=== PATIENT | female | born 1945 | race Caucasian/White ===

== ENCOUNTER → 2018-02-23 | Outpatient (CLI) | payer OTHER ==
[~2018-02-23] VITALS: Ht 152.4 cm; Wt 48.5 kg
[~2018-02-23] MED LIST: ALEVE220 M1 PO; ATORVASTATIN CA40 MG PO; CLONAZEPAM 0.50.5 M1 PO; COLACE100 MG PO; GLIMEPIRIDE1 MG PO; LIORESAL 10 MG10 MG PO; METHYLPREDNISOLO4 M1 PO; METOCLOPRAMIDE 55 M1 PO; NEURONTIN 300300 M1 PO; ROPINIROLE HCL3 MG PO; TRAMADOL 50 MG50 MG PO; VOLTAREN GEL 1100 G2 TOP
--- NOTE | ~2018-02-23 | HPC ---
[facility] [place] [address] PAIN MANAGEMENT CONSULTATION Name: DOROTHYLUCIEN Amada [facility] #[id number] Admission: 02/23/18 Attend Phys: Aaron Cornell MD Discharge: Date of : 45 Report #: [id number] THIS REPORT FOR: //name// CC: Maggie RAMOS Physician staff Aaron Cornell DATE OF SERVICE: 02/23/2018 CHIEF COMPLAINT: Chronic pain, low back and left buttock. HISTORY OF PRESENT ILLNESS: This is the first visit for the patient who presented to the Pain Clinic today with her . I should say the outset that she was lying on the cart with her pillow during my visit and each time that I examined her, she wanted to return to the recumbent position. Her reports that she spends most of her time in bed. She also is a very poor historian. Her was able to provide some details, but he also was unable to give a thorough history as I had hoped for. It is clear that she has chronic pain, has been going on for some time. The pain report on her questionnaire suggested a sharp stabbing lumbar spine pain to the left side that has been present since February of 2017. She had a spinal surgery. She was unable to give me the name of the surgeon who performed the surgery nor exactly what the surgery was. I unfortunately do not have records or MRI. Since that time or perhaps even prior to that time, she has been complaining of a 9/10 pain shooting, cramping and aching, periodic and transient. Her pain drawing shows pain that begins in the back and radiates down the posterior aspect of the left leg. This was suggested L5-S1 nerve root involvement. She complains of alternating constipation and diarrhea. She complains of inability to get up and stand or do much of anything. She spends most of her time in bed. MEDICATIONS: A bit uncertain but we gathered the following: Colace, naproxen sodium q. 8 hours, Lipitor 40 mg at bedtime, gabapentin 300 mg t.i.d., Ultram 50 mg q. 6 hours, Reglan 5 mg 4 times daily, methylprednisolone 4 mg tablets daily, clonazepam 0.5 b.i.d., glimepiride 1 mg daily, baclofen 10 mg t.i.d., and Voltaren gel. ALLERGIES: To CODEINE, HYDROCODONE and OXYCODONE. PAST MEDICAL HISTORY: Type [address] [address] PAIN MANAGEMENT CONSULTATION Name: LUCIEN DE LA CRUZ Room #: REG [facility]#: [id number] Admission: 02/23/18 Attend Phys: Aaron Cornell MD Discharge: Date of : 45 Report #: [id number] PAST SURGICAL HISTORY: Gamma knife surgery is listed, although no details, tonsillectomy, cholecystectomy and cyst removed from her left foot. Spinal surgery was not listed by the patient in her list of operations but apparently this occurred in 2017. SOCIAL HISTORY: Listed as retired. She denies use of tobacco or alcohol or illicit drugs. REVIEW OF SYSTEMS: Markedly positive. Over 80% of the multi-questionnaire was answered in the affirmative including symptoms and every system; constitutional; ear, nose and throat; cardiovascular; respiratory; gastrointestinal; genitourinary; musculoskeletal; psychiatric and endocrine. She complains of memory loss, nervousness, depression and insomnia. PAIN IMPACT SCORE: Impact of pain score is positive for a score of 49/70, suggesting significant impact in her ability to live normally with chronic pain. PHYSICAL EXAMINATION: GENERAL: Somewhat confused 72-year-old female, very pale. VITAL SIGNS: Blood pressure 125/77, heart rate 87, respirations 16 and BMI is 20.9. HEENT: Normal. She has heavy makeup around her eyes. NECK: Supple without painful movement. CHEST: Reveals normal breath sounds. No audible wheezing. CARDIAC: Rhythm was regular. No appreciable murmur. ABDOMEN: Soft and tender. Bowel sounds are present. MUSCULOSKELETAL: Reveals a scar across the upper lumbar lower thoracic region from previous spinal surgery. This is tender. There is tenderness with slight rotation of the lumbar spine. There is mild positive straight leg raising discomfort noted in the left leg. Deep tendon reflexes are 2+ knees and ankles and symmetrical. Sensation is intact. There is no swelling. Peripheral pulses are palpable. RADIOLOGICAL DATA: X-rays: None are available to review. Impression: Post-laminectomy syndrome. I need more records. I have asked her to obtain a copy of her MRI report. I would like to get reports of her surgeries as well. Able to retrieve later in the day. A copy of her 01/09/2018 thoracic spine MR, which reported a meningioma in the spine as the indication for x-ray. It demonstrated postoperative changes in the upper lumbar region, especially to the left without mass effect or abnormal enhancement. Significant degenerative changes throughout with an L1-L2 reactive marrow changes, vacuum disk phenomena and posterior ridging with a [id number] disk extrusion suspected to the right without cord deformity. There was diffuse thoracic spondylosis with anterior wedging of several mid thoracic vertebrae, which appeared chronic. No acute compression deformities, [address] [address] PAIN MANAGEMENT CONSULTATION Name: LUCIEN DE LA CRUZ Room #: REG [facility]#: [id number] Admission: 02/23/18 Attend Phys: Aaron Cornell MD Discharge: Date of : 45 Report #: [id number] mass lesions or intrinsic cord abnormalities were noted. IMPRESSION: 1. Lumbar pain with radiation in the L5 distribution. 2. Severe debility. 3. Confusion. 4. History of diabetes. 5. . RECOMMENDATIONS: Return to the pain clinic in 1 week. I will review records. We would consider an epidural injection, but I would not suggest a spinal cord stimulator for this patient at this time without further information. By: [id number] Aaron Cornell MD /nt
[2018-02-23 13:11] VITALS: BP 125/77
== END ==
LOC: PAIN 06:59
DX: M54.5 Low back pain (principal); G89.29 Other chronic pain; E11.9 Type 2 diabetes mellitus without complications; R53.81 Other malaise; R41.0 Disorientation, unspecified

== ENCOUNTER → 2018-04-23 | Outpatient (CLI) | payer OTHER ==
[~2018-04-23] VITALS: Ht 152.4 cm; Wt 53.0 kg
[~2018-04-23] MED LIST changes: +BIOTIN1 MG PO; +CITRATE OF MAG296 M1 PO; +CYCLOBENZAPRINE5 MG PO; +DURAGESIC1 EAC4 TRANSDERM; +DURAGESIC1 EACH TRANSDERM; +EX-LAX15 MG PO; +GAS-X125 MG PO; +LIPITOR 20 MG T20 M1 PO; +LOPERAMIDE 2 MG2 M1 PO; +METAMUCIL POWD174 GM PO; +MOVANTIK12.5 MG PO; +NEXIUM40 MG PO; +ONDANSETRON HCL4 M2 PO; +OSTEO BI-FLEX1 EAC1 PO; +PEPTO-BISM262 MG/15 PO; +SENNA8.6 MG PO; +TRAZODONE HCL50 MG PO; +TUMS PO; +VALIUM5 MG PO; +VITAMIN D1000 UNI1 PO; +XANAX 0.5 MG0.5 MG PO
--- NOTE | ~2018-04-23 | HPC ---
[facility] [address] [place] [address] PAIN MANAGEMENT CONSULTATION Name: LUCIEN DE LA CRUZ Room #: REG TEAGAN Ramye.#: [id number] Admission: 04/23/18 Attend Phys: Aaron Cornell MD Discharge: Date of : 45 Report #: [id number] THIS REPORT FOR: //name// CC: Maggie Rodriguez [facility] physician/PCP Jourdan Cornell DATE OF SERVICE: 04/24/2018 Followup visit for chronic pain. The patient returns to pain clinic today and she is by herself. She is here today with low back pain and it radiates in a pattern along her left flank and into the left upper thigh. She is more loquacious today, outgoing and speaks rapidly. Her thought process is a bit tangential. She is friendly and outgoing. When I first saw her, she was in a different place much more dramatic in her pain behaviors. She was a poor historian at that visit from a depressed perspective and today her affect while more upbeat is tangential in her approach to topics and subjects. She reports to us that her pain intensity is a 5, but can be higher. It is shooting, cramping, crushing and aching. It radiates exclusively through the left, radiates as far as the knee. MEDICATIONS: Reviewed and reconciled. She remains on a substantial amount of medication including centrally acting medications. I have given her a short trial of fentanyl 12 mcg, but she did not like it. I have asked her to destroy the additional patches. PQRS: Review today shows a pleasant, but loquacious and somewhat forgetful female. Blood pressure 108/79, heart rate is 82, respirations 14, BMI is 22.8. She has significant osteoarthritis involving the hands. She has a pain intensity of 5/10, which is in her left low back and left leg consistent with radiculopathy. She has fallen in the last 3 months and is considered a fall risk. She is on no blood thinners and is not treated for hypertension and is not currently on opioids. She denies use of tobacco or alcohol. Physical exam reveals tenderness across the lumbosacral segment, pain with forward flexion and extension. Slight scoliosis and rotational changes noted throughout the lumbar spine. Tenderness along the paravertebral region on the right with a positive straight leg raising following L4 distribution. IMPRESSION: 1. Chronic intractable low back pain with radiculopathy. [address] [address] PAIN MANAGEMENT CONSULTATION Name: DE LA CRUZLUCIEN C Room #: REG CLI [facility]#: [id number] Admission: 04/23/18 Attend Phys: Aaron Cornell MD Discharge: Date of : 45 Report #: [id number] 2. History of diabetes. 3. Post-laminectomy syndrome with resection of meningioma in the area of T12. RECOMMENDATIONS: We will try an epidural steroid injection under fluoroscopic guidance. I would like to avoid any additional medication for this woman. Importance of some exercise was discussed in some great detail as well today. PROCEDURE: Left transforaminal epidural injection under fluoroscopic guidance. She was taken to fluoroscopic suite, placed prone, skin prepped with ChloraPrep. Skin anesthetized over the L3-L4 neural foramen. Using triplanar fluoroscopic views, I advanced needle over the L4-L5 neural foramen. Using triplanar fluoroscopic views, I advanced needle into the neural foramen. On the first attempt, there was no blood or CSF aspirated. 1 mL of Omnipaque was injected with good spread of dye observed in the epidural space, was followed by 3 mL of 0.5% lidocaine mixed with 80 mg of triamcinolone. She tolerated the procedure well and was observed for 45 minutes and discharged. Pain was reduced to 1 or 2 at discharge. By: [id number] Aaron Cornell MD /nt
[2018-04-23 14:34] VITALS: BP 108/79
== END | disposition home or self-care (01) ==
LOC: PAIN 04-02 12:23
DX: M54.16 Radiculopathy, lumbar region (principal); G89.29 Other chronic pain; M96.1 Postlaminectomy syndrome, not elsewhere classified; Z88.6 Allergy status to analgesic agent; Z88.8 Allergy status to other drugs, medicaments and biological substances; Z79.899 Other long term (current) drug therapy; Z98.890 Other specified postprocedural states

== ENCOUNTER → 2018-06-15 | Outpatient (CLI) | payer OTHER ==
[~2018-06-15] VITALS: Ht 152.4 cm; Wt 51.4 kg
[~2018-06-15] MED LIST changes: +MIRALAX17 GM PO
--- NOTE | ~2018-06-15 | HPC ---
[facility] [place] [address] PAIN MANAGEMENT CONSULTATION Name: DOROTHYLUCIEN Amada Room #: REG TEAGAN Ramey.#: [id number] Admission: 06/15/18 Attend Phys: Aaron Cornell MD Discharge: Date of : 45 Report #: [id number] THIS REPORT FOR: //name// CC: JAMEY MENARD APRN [facility] physician/PCP Aaron Cornell DATE OF SERVICE: 06/15/2018 Followup visit for chronic low back pain with radiation to the left hip and leg. The patient returns to clinic today and reports that she had significant improvement following her first transforaminal epidural injection. She is no longer utilizing pain medication from our clinic. She is here today hopeful for another injection. She is very hard of hearing. She did communicate to me that her pain has moderated, but is still present at a level of 6/10. PQRS REVIEW: 1. History of arthritis is not applicable. She has some history of rheumatoid arthritis in the hands. 2. BMI is 22.1. 3. Vital signs: Blood pressure 100/82, pulse 107, respirations 16, O2 sat 94%. 4. Pain intensity 6/10. 5. She is a fall risk and has fallen in the last 3 months. She was recommended to use a cane and walk cautiously and carefully. 6. The patient is on no blood thinners. 7. No history of hypertension. 8. She is on no opioid medications. 9. No risk assessment tool necessary. 10. Functional assessment is 49/70 suggesting high interference of day-to-day activities with her pain. 11. No recreational drug use or described. She has never smoked. Denies use of alcohol. PHYSICAL EXAMINATION: GENERAL: She is hard of hearing, pleasant 73-year-old. MUSCULOSKELETAL: She moves independently from sitting to standing. She walks with antalgic gait. She has pain with forward flexion and extension. She has tenderness along the iliac crest on the left. The pain then radiates along the iliac crest down into L4 distribution of the anterolateral thigh. Straight leg raising is negative. Sensation is intact. Mild focal weakness is noted in hip and leg extension. IMPRESSION: Low back pain with radiculopathy on the left L4-L5 distribution. [address] [address] PAIN MANAGEMENT CONSULTATION Name: LUCIEN DE LA CRUZ Room #: REG [facility].#: [id number] Admission: 06/15/18 Attend Phys: Aaron Cornell MD Discharge: Date of : 45 Report #: [id number] PROCEDURE: Transforaminal epidural steroid injection. Given her elevation of blood sugar after the last injection, I have decided to reduce her triamcinolone dose to 60 mg. Procedure was discussed, risks and benefits. She is anxious to proceed. DESCRIPTION OF PROCEDURE: Left transforaminal epidural injection under fluoroscopic guidance. She was taken to fluoroscopic suite, placed prone, skin prepped with ChloraPrep. Skin anesthetized over the L4-L5 neural foramen. Using triplanar fluoroscopic views, I advanced needle into the neural foramen. No blood or CSF was aspirated. 1 mL Omnipaque was injected and good excellent spread of dye observed into the epidural space along the nerve root, was then followed by 3 mL of 0.5% lidocaine mixed with 60 mg of triamcinolone. She tolerated the procedure well and was observed for 45 minutes and discharged. Followup visit planned in the pain clinic in 3 months. By: [id number] Aaron Cornell MD /nt
[2018-06-15 14:41] VITALS: BP 100/82
== END | disposition home or self-care (01) ==
LOC: PAIN 05-25 12:49
DX: M54.16 Radiculopathy, lumbar region (principal); G89.29 Other chronic pain; Z88.8 Allergy status to other drugs, medicaments and biological substances; Z79.899 Other long term (current) drug therapy

== ENCOUNTER → 2020-01-24 | Outpatient (CLI) | payer OTHER ==
[~2020-01-24] VITALS: Ht 152.4 cm; Wt 48.4 kg
[~2020-01-24] MED LIST changes: +EMETROL ORAL S118 ML PO
--- NOTE | ~2020-01-24 | HPC ---
[facility] [place] [address] [place] [address] PAIN MANAGEMENT CONSULTATION Name: LUCIEN DE LA CRUZ Room #: REG TEAGAN Tanvir.#: [id number] Admission: 01/24/20 Attend Phys: Aaron Cornell MD Discharge: Date of : 45 Report #: [id number] THIS REPORT FOR: cc: Niru Montelongo MD, Rochelle M. MD Morgan, Richard L. MD ~ CC: Maggie Montelongo DATE OF SERVICE: 01/24/2020 Followup visit for left lumbar radiculopathy. The patient is a pleasant 74-year-old, very loquacious female who is here today without her . She is in a wheelchair and has a long story for me about her neuroablative procedure at the [facility]. She was seen there and treated for sacroiliac joint pain with a neuroablative procedure. She apparently was hypotensive during the procedure and was in significant pain following the procedure. She continues to complain of pain in the sacroiliac area. Other pain is more radicular in its nature. It is on beginning in her left flank and radiates down into her left leg. I have previously treated her with a transforaminal epidural injection, which she felt was helpful, particularly for the left hip and leg component. She is here today hopeful for another injection. She is, as noted in prior dictations, a difficult historian at times and very loquacious. She talked throughout her visit and was tangential in her subjects. 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 PHYSICAL EXAMINATION: VITAL SIGNS: Her blood pressure is 109/74, heart rate 70, respirations 14, O2 sat is 100% on room air with a mask. She is 5 feet tall and her BMI is 20.9. HEENT: Normal. Her pupils are equal, round, reactive to light. EOMs are intact. Mucous membranes are dry. NECK: Supple. She has some tenderness below the occiput. CHEST: Clear. CARDIAC: Rhythm is regular. ABDOMEN: Soft. MUSCULOSKELETAL: Examination of the spine reveals scar from prior surgery in the lumbothoracic region. We discussed it today. It was a benign tumor removed many years ago. She has mild tenderness across the lumbosacral segment. Straight leg raising reproduces discomfort into the left leg and left hip. Sensation is normal. She has generalized weakness and is considered a fall risk. [address] [address] PAIN MANAGEMENT CONSULTATION Name: LUCIEN DE LA CRUZ Room #: [facility]#: [id number] Admission: 01/24/20 Attend Phys: Aaron Cornell MD Discharge: Date of : 45 Report #: [id number] MEDICATIONS: As noted on the electronic medical record. All medications were reviewed and reconciled. The patient is not on a blood thinner. She is considered a fall risk. She denies use of tobacco or alcohol. IMPRESSION: Low back pain with radiation into the left hip and flank, which has radicular components. RECOMMENDATIONS: Given her good response at least to her history presentation to have good response from her transforaminal epidural injection at L3-L4, we will repeat the same today under fluoroscopic guidance. PROCEDURE: Left transforaminal epidural injection L3-L4 under fluoroscopic guidance. After informed consent, she was taken to fluoroscopic suite, placed prone, skin prepped with ChloraPrep. Skin anesthetized over the L3-L4 interspace. Using triplanar fluoroscopic views, advanced needle into the neural foramen. 1 mL of Omnipaque demonstrated an excellent epidurogram followed by 3 mL of 0.5% lidocaine mixed with 80 mg of triamcinolone. She tolerated the procedure well. There were no complications. Followup visit planned in 2-3 months. By: [id number] Aaron Cornell MD /nt
[2020-01-24 13:39] VITALS: BP 109/74
--- NOTE | 2020-01-24 14:20 | NUR ---
Pain Clinic Assessment: 1. History of Osteoarthritis: HANDS BACK History of Rheumatoid Arthritis: NO 2. Height: 5 ft. 0 in. 152.4 cm. Weight: 106.8 lb. oz. 48.444 kg. Patient's BMI: 20.9 3. Vital Signs: BP: 109/74 Pulse: 70 Resp: 14 Temp: 02 Sat: 100 ECG Mon: 4. Pain Intensity: 6-7 5. Fall Risk: Dizziness: N Needs help standing or walking: Y Fallen in the last 3 months: Y Fall risk comments: 6. Patient on Blood Thinner: None 7. History of Hypertension: N 8. Opioid Therapy greater than 6 weeks: N Opiate Contract Signed: 9. Risk Assessment Tool Provided: LOW 10. Functional Assessment Tool: 11. Recreational Drug Use: Never Drug Type: Tobacco Use: Never Smoker Tobacco Type: Amount or Packs/day: How Many Years: Alcohol Use: No Frequency: Quant:
== END ==
LOC: PAIN 07:12
PROVIDERS: ATTEND Anesthesiology Pain Medicine
DX: M54.16 Radiculopathy, lumbar region (principal); G89.29 Other chronic pain; Z98.890 Other specified postprocedural states; Z79.899 Other long term (current) drug therapy